=== PATIENT | female | born 1995 | race Caucasian/White ===

== ENCOUNTER 2016-05-31 16:42 | Emergency (ER) | payer MEDICAID | END 2016-05-31 19:55 | disposition home or self-care (01) | LOC: ER 16:42 | DX: O26.891 Other specified pregnancy related conditions, first trimester (principal); O99.331 Smoking (tobacco) complicating pregnancy, first trimester; R10.30 Lower abdominal pain, unspecified; N89.8 Other specified noninflammatory disorders of vagina; F17.200 Nicotine dependence, unspecified, uncomplicated; Z3A.08 8 weeks gestation of pregnancy | CPT/HCPCS: 36415; 76817; 80053; 81001; 84702; 85025; 86901; 87088; 87491; 87591; 87800 ==